=== PATIENT | male | born 1980 | race Two or more races ===

== ENCOUNTER 2025-01-12 05:20 | Emergency (ER) | payer SELFPAY ==
[~2025-01-12] VITALS: Ht 177.8 cm; Wt 93.0 kg
[2025-01-12] MEDS ORDERED: CYCLOPENTOLATE 2% LEFTEYE ONE (06:30)
[2025-01-12] MEDS: CYCLOPENTOLATE 1% OPHTHALMIC 2 ML BOTTLE OP ONE (07:10)
[2025-01-12] MEDS ORDERED: Magnesium 1GM/D5W 100ML PREMIX 100 ML IV SCH (07:30)
[2025-01-12] MEDS ORDERED: CYCLOPENTOLATE 1% OPHTHALMIC 2 ML BOTTLE LEFTEYE ONE (07:30)
[2025-01-12 08:37] VITALS: BP 126/84; TEMP 98.2; O2SAT 99
== END 2025-01-12 08:38 | disposition home or self-care (01) ==
LOC: ER 05:28
DX: S02.2XXA Fracture of nasal bones, initial encounter for closed fracture (principal); S00.83XA Contusion of other part of head, initial encounter; H20.042 Secondary noninfectious iridocyclitis, left eye; V49.09XA Driver injured in collision with other motor vehicles in nontraffic accident, initial encounter; Y93.89 Activity, other specified; Y92.410 Unspecified street and highway as the place of occurrence of the external cause; Y99.9 Unspecified external cause status
CPT/HCPCS: 70450-TC; 70486-TC